=== PATIENT | male | born 1950 | race Caucasian/White ===

== ENCOUNTER 2016-08-08 18:50 | Emergency (ER) | payer MEDICARE, OTHER ==
[2016-08-08] MEDS ORDERED: traMADol HCL 50 MG (ER DISP) # 6 TABS PO ONE (21:59)
--- NOTE | 2016-08-09 13:32 | RAD ---
EXAM DESCRIPTION: XR CHEST 2 VIEWS CLINICAL HISTORY: SYNCOPE,FALL COMPARISON: None Available. TECHNIQUE: PA/lateral FINDINGS: There is no cardiac or pulmonary abnormality. The lungs are clear. There is no effusion. IMPRESSION: No acute findings on today's study. Electronically signed by: Beck Rose MD 08/09/2016 13:31
--- NOTE | 2016-08-09 13:33 | RAD ---
EXAM DESCRIPTION: XR RIBS 2 VIEWS UNILATERAL CLINICAL HISTORY: 66 y/o ,M, FALL COMPARISON: Chest radiograph performed today. IMPRESSION: Four views of the right ribs demonstrate a minimally displaced 6th, 7th and 8th rib fractures. No pneumothorax on today's study. Please refer to the separately dictated chest x-ray for additional information. Electronically signed by: Beck Rose MD 08/09/2016 13:33
== END 2016-08-08 21:55 | disposition home or self-care (01) ==
LOC: ER 18:50
DX: R55 Syncope and collapse (principal); R07.81 Pleurodynia

== ENCOUNTER → 2016-08-09 | Outpatient (CLI) | payer MEDICARE, OTHER ==
--- NOTE | 2016-08-09 16:34 | CT ---
EXAM DESCRIPTION: CT HEAD WITHOUT IV CONTRAST CLINICAL HISTORY: SYNCOPE COMPARISON: None available TECHNIQUE: Non contrast cranial CT was performed. Data was reconstructed for interpretation. FINDINGS: Ventricles and sulci are unremarkable. There is no hemorrhage or mass. Mild periventricular white matter disease noted, age appropriate. Vascular calcifications noted within bilateral internal carotid arteries. The calvarium is unremarkable. The visualized paranasal sinuses and the mastoids are clear. IMPRESSION: Today's exam demonstrates minimal periventricular white matter disease in atherosclerotic disease of bilateral internal carotid arteries. No acute findings on today's study. Electronically signed by: Beck Rose MD 08/09/2016 16:33
== END | disposition home or self-care (01) ==
LOC: LAB.NP 12:29
PROVIDERS: ATTEND Family Medicine
DX: Z12.5 Encounter for screening for malignant neoplasm of prostate (principal); E78.2 Mixed hyperlipidemia; R55 Syncope and collapse
CPT/HCPCS: 70450; 84443; 84550; G0103

== ENCOUNTER 2016-08-11 18:12 | Emergency (ER) | payer MEDICARE, OTHER ==
[2016-08-11 18:39] VITALS: TEMP 97.9
--- NOTE | 2016-08-11 21:07 | CT ---
EXAM DESCRIPTION: CTA Chest CLINICAL HISTORY: 66 years Male, syncope COMPARISON: Chest x-ray from today TECHNIQUE: 2.5 mm axial images through the chest were performed after the administration of intravenous contrast utilizing a pulmonary embolus protocol. Coronal MIPS were performed by the reading radiologist. FINDINGS: Small pericardial and small RIGHT pleural effusions are present. Normal caliber aorta without dissection. Vascular calcifications are noted with greatest involvement in the coronary arteries. No acute pulmonary embolus is present. No pneumothorax. Dependent airspace opacities suggest atelectasis. Patent central airway. A 5 mm hypoattenuating thyroid gland nodule (RIGHT lobe on axial image 14) does not require follow-up based on size and patient age. Redemonstrated are RIGHT lateral rib fractures. In particular, the RIGHT fifth lateral rib fracture is nondisplaced, RIGHT six lateral rib fracture is displaced one shaft width in the RIGHT seventh lateral rib fracture is nondisplaced. Multiple hepatic cysts are present. The largest resides in the RIGHT lobe and measures 3 cm in size. The pancreas is atrophic. Gas and soft stool distends the imaged colon. No bowel wall thickening or adjacent fat stranding. IMPRESSION: There are three displaced and nondisplaced RIGHT lateral rib fractures (RIGHT fifth through seventh ribs). No pneumothorax. These rib fractures are favored to be the cause of the small RIGHT pleural effusion and atelectasis in the lung bases. No acute pulmonary embolus. Normal caliber aorta without dissection. Trace pericardial effusion. Coronary artery disease. Gaseous and soft stool distention of the imaged colon. 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
--- NOTE | 2016-08-11 21:45 | ED.PDOC ---
History of Present Illness - General Chief Complaint: Blood Pressure Problem Stated Complaint: headache and high blood pressure Time Seen by Provider: 08/11/16 18:43 Source: patient Exam Limitations: no limitations - History of Present Illness Initial Comments: Patient presents after checking his blood pressure and finding it to be systolic in the 10s. He also had a brief episoded of diaphoresis today. He had a syncopal event last week in which he fell and broke his right 6th rib. He followed up with his pcp on two days ago and got a head CT and is awaiting the results. No other complaints. Patient has not had any further syncopal events. He has an appointment with his pcp tomorrow. Timing/Duration: 1-3 hours Severity: mild Improving Factors: nothing Worsening Factors: nothing Associated Symptoms: denies symptoms Allergies/Adverse Reactions: Allergies NO KNOWN ALLERGY Allergy (Verified 08/11/16 18:39) Review of Systems - Review of Systems Constitutional: States: no symptoms reported EENTM: States: no symptoms reported Respiratory: States: no symptoms reported Cardiology: States: no symptoms reported Gastrointestinal/Abdominal: States: no symptoms reported Genitourinary: States: no symptoms reported Musculoskeletal: States: no symptoms reported Skin: States: no symptoms reported Neurological: States: no symptoms reported Endocrine: States: no symptoms reported Hematologic/Lymphatic: States: no symptoms reported Past Medical History (General) - Patient Medical History Hx Hypertension: Yes Hx Diabetes: Yes Surgical History: other - Vaccination History Hx Tetanus, Diphtheria Vaccination: - unknown Hx Influenza Vaccination: Yes Hx Pneumococcal Vaccination: No - Social History Hx Tobacco Use: No Hx Alcohol Use: No Hx Substance Use: No Hx Substance Use Treatment: No Hx Depression: No - Activities of Daily Living Hospice Agency (if applicable):: None Family Medical History - Family History Mother Family History: Unknown Physical Exam - Physical Exam General Appearance: Alert Ears, Nose, Throat: normal ENT inspection Neck: non-tender, full range of motion, supple Respiratory: lungs clear, other - tender right thorax Cardiovascular/Chest: regular rate, rhythm Gastrointestinal/Abdominal: normal bowel sounds, non tender, soft Extremity: normal inspection Skin Exam: normal color Progress - Progress Progress: 08/11/16 21:[address] exam from friday. Age related white matter changes. Incidental internal carotid atherosclerosis which might be related to his past syncopal events. Troponin negative. EKG showed no acute ST changes nor significant T wave inversions. CTA chest showed no PE. Three fractured ribs on right side noticed with small pleural effusion. Patient discharged with orders to keep his follow up with his pcp tomorrow. Laboratory Tests 08/11/16 19:07 WBC 11.6 H D RBC 5.32 Hgb 15.6 Hct 46.8 MCV 87.9 MCH 29.4 MCHC 33.4 RDW 14.6 H Plt Count 270 MPV 7.8 Absolute Neuts (auto) 9.70 H Absolute Lymphs (auto) 1.10 Absolute Monos (auto) 0.70 Absolute Eos (auto) 0.10 Absolute Basos (auto) 0.00 Neutrophils % 83.9 H Lymphocytes % 9.1 L Monocytes % 6.2 Eosinophils % 0.6 L Basophils % 0.2 PT 11.3 INR 1.000 PTT (SP) 28.3 D-Dimer, Quantitative 252 H* Sodium 132 L Potassium 4.1 Chloride 96 L Carbon Dioxide 31 Anion Gap 9.1 L BUN 18 Creatinine 0.95 BUN/Creatinine Ratio 18.9 Random Glucose 127 H Serum Osmolality 268.0 L Calcium 9.6 Total Bilirubin 1.0 AST 14 ALT 14 Alkaline Phosphatase 65 D Creatine Kinase 87 CK-MB (CK-2) 2.9 CK-MB (CK-2) % Not Reportable Troponin I < 0.02 B-Natriuretic Peptide 9.4 Serum Total Protein 7.6 Albumin 4.3 Globulin 3.3 Albumin/Globulin Ratio 1.3 Departure - Departure Disposition: Discharge to Home or Self Care Condition: Good Departure Forms: ED Discharge - Pt. Copy, Patient Portal Self Enrollment Diet: resume usual diet Activity: increase activity as tolerated Additional Instructions: Keep your primary care doctor appointment tomorrow.
[2016-08-11 22:28] VITALS: BP 154/88; O2SAT 93
--- NOTE | 2016-08-19 00:28 | RAD ---
EXAM DESCRIPTION: Chest,1 View CLINICAL HISTORY: 66 years, Male, diaphoresis, syncope COMPARISON: Chest x-ray dated 08/08/2016. FINDINGS: A single frontal chest radiograph was performed. The lungs are moderately expanded and clear aside from discoid atelectasis in the LEFT lower lobe. The costophrenic sulci are sharp. The aortic arch is calcified. The cardiac silhouette, hilar regions, trachea, soft tissues and bony structures are unremarkable aside from a mildly displaced posterior sixth rib fracture. No pneumothorax is identified. In the interval since the prior study, lung volumes have decreased. IMPRESSION: No acute cardiopulmonary disease. Mildly displaced posterior RIGHT sixth rib. The other reported rib fractures are less well seen given the location. 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
== END 2016-08-11 22:27 | disposition home or self-care (01) ==
LOC: ER 18:12
DX: I10 Essential (primary) hypertension (principal); I65.29 Occlusion and stenosis of unspecified carotid artery; E11.9 Type 2 diabetes mellitus without complications; J90 Pleural effusion, not elsewhere classified

== ENCOUNTER → 2018-01-13 | Outpatient (CLI) | payer MEDICARE, OTHER | LOC: LAB.O 08:15 | PROVIDERS: ATTEND Internal Medicine Gastroenterology | DX: I10 Essential (primary) hypertension (principal); K76.89 Other specified diseases of liver; R94.5 Abnormal results of liver function studies; Q44.6 Cystic disease of liver ==

== ENCOUNTER → 2018-01-27 | Outpatient (CLI) | payer MEDICARE, OTHER ==
--- NOTE | 2018-01-27 15:10 | MRI ---
EXAM DESCRIPTION: Lumbar Spine w/o Contrast CLINICAL HISTORY: 67 years Male, LUMBAR RADICULOPATHY COMPARISON: None available. TECHNIQUE: Multiplanar multiecho imaging of the lumbar spine was performed without intravenous contrast administration. FINDINGS: The vertebral body heights are well-maintained with no acute compression deformity. Multilevel intervertebral disc space narrowing is noted. The conus medullaris terminates at L2 vertebral body. The visualized spinal cord demonstrates no signal abnormality. L1-L2: Mild bilateral facet arthropathy with mild bilateral neural foraminal narrowing. Disc desiccation with no canal stenosis. L2-L3: Bilateral facet arthropathy with resultant mild bilateral neural foraminal narrowing. L3-L4: Bilateral facet arthropathy and posterior disc bulge with resultant moderate to severe bilateral lateral recess narrowing and moderate right and moderate to severe left neural foraminal narrowing. L4-L5: Bilateral facet arthropathy and ligamentum flavum hypertrophy with mild canal stenosis, moderate to severe bilateral lateral recess narrowing and neural foraminal narrowing. L5-S1: There is a 1 x 0.6 cm facet synovial cyst arising from the left facet joint and protruding into the central canal with abutment of the traversing left S1 nerve root. Also, there is moderate right and moderate to severe left neural foraminal narrowing secondary to facet arthropathy. The visualized prevertebral and paravertebral soft tissues appear unremarkable. IMPRESSION: Multilevel degenerative disc disease and facet arthropathy throughout the lumbar spine with changes worse from L3-L4 through L5-S1 levels as detailed above. Electronically signed by: Kinsey Snell MD 01/27/2018 3:09 PM CDT
== END ==
LOC: MRI 10:00
PROVIDERS: ATTEND Physician Assistant Medical
DX: M54.16 Radiculopathy, lumbar region (principal); M51.36 Other intervertebral disc degeneration, lumbar region

== ENCOUNTER → 2019-09-21 | Outpatient (CLI) | payer MEDICARE, OTHER | LOC: YCFC.O 10:30 | PROVIDERS: ATTEND Family Medicine | DX: E55.9 Vitamin D deficiency, unspecified (principal); Z12.5 Encounter for screening for malignant neoplasm of prostate; I10 Essential (primary) hypertension; R73.01 Impaired fasting glucose; E78.5 Hyperlipidemia, unspecified; R53.83 Other fatigue ==

== ENCOUNTER → 2019-11-29 | Outpatient (CLI) | payer MEDICARE, OTHER ==
--- NOTE | 2019-11-29 14:36 | MRI ---
EXAM DESCRIPTION: Lumbar Spine w/o Contrast : Magnetic Resonance Imaging. CLINICAL HISTORY: LOW BACK PAIN COMPARISON: MRI lumbar spine without contrast January 2018. TECHNIQUE: Multiplanar, multiple standard sequences, non contrast MRI, lumbar spine. FINDINGS: L5-S1: The disc is well visualized on axial T2 series 501, image 3. Disc desiccation with disc space maintained. Grade 1 anterolisthesis 2 mm. Minimal disc bulge posterior. Degenerative hypertrophy of the posterior ligaments and facet joints (canal elements) more on the left. AP canal diameter 11 mm. Left foraminal stenosis and moderate to severe right foraminal narrowing. Bilateral deformities of the L5 pars interarticulares. Stable since the prior study. L4-L5: Disc desiccation and posterior disc space loss. Minimal degenerative hypertrophy of the canal elements with AP canal diameter 10 mm. Bilateral borderline foraminal stenosis. No change from the prior study. L3-L4: Minimal disc desiccation with disc space maintained. Minimal hypertrophy of the canal elements. Mild disc bulge into the right foramen more on the left with stenosis. Moderate narrowing on the right. Canal is patent. Stable since the prior study. L2-L3: Disc desiccation anterior bulging and anterior endplate reactive changes. No posterior bulge. Canal elements are unremarkable. Foramina and Canal are patent. No interval change. L1-L2: Disc desiccation with disc space maintained. Minimal anterior bulging. Canal diameter patent. Mild narrowing of the left foramen with right foramen patent. Stable since the prior study. Conus terminates just below the disc space. T12-L1: Disc desiccation with minimal anterior bulging. Trace posterior bulge. Canal Elements are unremarkable. Bilateral foramina and canal are patent. No change from the prior study. No significant scoliosis. Paravertebral soft tissues are unremarkable.. Distal cord normal signal and caliber. Normal marrow signal in the remaining vertebral bodies and the posterior elements. Vertebral bodies are not compressed at any level. IMPRESSION: 1. Multiple levels of significant foraminal and canal narrowing and disc desiccation. Multifocal degenerative hypertrophy of the posterior flavum ligaments and facet joints. 2. L4-L5 multifocal borderline mild central canal stenosis and bilateral borderline foraminal stenosis. No change from the prior study. 3. L3-L4 left foraminal stenosis stable since the prior study. For results at other levels, please see findings above. Electronically signed by: Santosh Martinez MD 11/29/2019 2:35 PM CDT
== END ==
LOC: MRI 08:04
PROVIDERS: ATTEND Family Medicine
DX: M51.35 Other intervertebral disc degeneration, thoracolumbar region (principal); M51.36 Other intervertebral disc degeneration, lumbar region; M51.85 Other intervertebral disc disorders, thoracolumbar region; M48.061 Spinal stenosis, lumbar region without neurogenic claudication; M46.96 Unspecified inflammatory spondylopathy, lumbar region; M24.28 Disorder of ligament, vertebrae

== ENCOUNTER → 2019-12-07 | Outpatient (CLI) | payer MEDICARE, OTHER ==
--- NOTE | 2019-12-08 09:50 | RAD ---
EXAM DESCRIPTION: Lumbar Spine 5 Views CLINICAL HISTORY: 69 years Male, SPINAL STENOSIS COMPARISON: MRI of the lumbar spine dated 11/29/2019. FINDINGS: Straightening of the normal lordotic curvature of the lumbar spine. The vertebral body heights are well-maintained with no acute compression deformity. Multilevel degenerative disc disease and facet arthropathy is noted, worse at L5-S1 level. No evidence of spondylolysis or spondylolisthesis with flexion or extension. The visualized prevertebral and paravertebral soft tissues appear grossly unremarkable. IMPRESSION: Multilevel degenerative disc disease and facet arthropathy, worse at L5-S1 level. No evidence of subluxation of the lumbar spine with flexion or extension. Electronically signed by: Kinsey Snell MD 12/08/2019 9:48 AM CDT
== END ==
LOC: RAD 13:55
PROVIDERS: ATTEND Family Medicine Sports Medicine
DX: M48.062 Spinal stenosis, lumbar region with neurogenic claudication (principal); M51.36 Other intervertebral disc degeneration, lumbar region; M51.37 Other intervertebral disc degeneration, lumbosacral region; M12.9 Arthropathy, unspecified

== ENCOUNTER → 2019-12-09 | Outpatient (CLI) | payer MEDICARE, OTHER | LOC: LAB.O 14:55 | PROVIDERS: ATTEND Family Medicine Sports Medicine | DX: Z01.818 Encounter for other preprocedural examination (principal); M48.062 Spinal stenosis, lumbar region with neurogenic claudication ==

== ENCOUNTER 2020-04-09 10:18 | Emergency (ER) | payer MEDICARE, OTHER ==
[2020-04-09 10:30] VITALS: BP 155/97; TEMP 97.2; O2SAT 97
[2020-04-09] MEDS ORDERED: TETANUS,DIPHTHERIA,PERTUSSIS 1 EA SYG IM ONE (10:30)
[2020-04-09] MEDS ORDERED: LIDOCAINE 1% 10 ML VIAL INJ ONE (10:30)
[2020-04-09] MEDS ORDERED: SULFA/TRIMETH 800/160 (DS) TAB 1 EA TAB PO ONE (10:31)
--- NOTE | 2020-04-09 10:37 | ED.PDOC ---
History of Present Illness - General Chief Complaint: General Stated Complaint: Fish hook in the R thumb Time Seen by Provider: 04/09/20 10:29 Source: patient Exam Limitations: no limitations - History of Present Illness Initial Comments: The patient is a 69-year-old male presented emergency room secondary to getting a fishhook stuck in the distal right thumb. This occurred just prior to arrival. Only one hook is in place. He is neurovascularly intact. Timing/Duration: unsure Severity: mild Improving Factors: nothing Worsening Factors: movement Associated Symptoms: denies symptoms Allergies/Adverse Reactions: Allergies NO KNOWN ALLERGY Allergy (Verified 08/11/16 18:39) Review of Systems - Review of Systems Constitutional: States: no symptoms reported EENTM: States: no symptoms reported Respiratory: States: no symptoms reported Cardiology: States: no symptoms reported Gastrointestinal/Abdominal: States: no symptoms reported Genitourinary: States: no symptoms reported Musculoskeletal: States: no symptoms reported Skin: States: see HPI Neurological: States: no symptoms reported All other Systems: No Change from Baseline Past Medical History (General) - Patient Medical History Hx Stroke: No Hx of COPD: No Hx Cardiac Disorders: Yes - loop recorder Hx Hypertension: Yes Hx Diabetes: No Hx Cancer: No Surgical History: other - Vaccination History Hx Tetanus, Diphtheria Vaccination: - unknown Hx Influenza Vaccination: Yes Hx Pneumococcal Vaccination: Yes - Social History Hx Tobacco Use: No Hx Alcohol Use: No Hx Substance Use: No Hx Substance Use Treatment: No Hx Depression: No - Female History Patient is a Female of Child Bearing Age (10 -59 yrs old): No Patient : No Family Medical History - Family History Mother Family History: Unknown Physical Exam - Physical Exam General Appearance: Alert, Comfortable, No apparent distress Eye Exam: bilateral normal Ears, Nose, Throat: hearing grossly normal Respiratory: no respiratory distress, no accessory muscle use Cardiovascular/Chest: normal peripheral pulses Peripheral Pulses: radial,right: 2+, radial,left: 2+ Rectal Exam: deferred Extremity: normal range of motion - Of the upper extremities, normal capillary refill 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 Risk and benefits of removal were explained and the patient agrees to proceed. Area is cleaned with an alcohol swab and 1% lidocaine without epinephrine was injected x2 cc for local anesthetic. Needle-nose pliers were used to remove the hook. Patient tolerated this well. Area is irrigated with water. The patient received a dose of a tetanus shot and a dose of Bactrim here. He does need to monitor for any evidence of infection. ER warnings are given. [email or web address] an [id number] Departure - Departure Clinical Impression: Fishing hook foreign body Qualifiers: Encounter type: initial encounter Qualified Code(s): W45.8XXA - Other foreign body or object entering through skin, initial encounter Disposition: Discharge to Home or Self Care Condition: Fair Departure Forms: ED Discharge - Pt. Copy, Patient Portal Self Enrollment Diet: regular diet Activity: increase activity as tolerated Referrals: González Cardoza MD [Primary Care Provider] - 1-2 Weeks Additional Instructions: The patient is a 69-year-old male presented emergency room secondary to sustaining a fishing hook in the right distal thumb. Needle-nose pliers were used to remove the hook. Patient tolerated this well. Area is irrigated with water. The patient received a dose of a tetanus shot and a dose of Bactrim here. He does need to monitor for any evidence of infection. ER warnings are given.
== END 2020-04-09 10:52 | disposition home or self-care (01) ==
LOC: ER 10:18
DX: S60.351A Superficial foreign body of right thumb, initial encounter (principal); I10 Essential (primary) hypertension; Z95.818 Presence of other cardiac implants and grafts; W45.8XXA Other foreign body or object entering through skin, initial encounter; Y92.9 Unspecified place or not applicable

== ENCOUNTER → 2020-06-01 | Outpatient (CLI) | payer MEDICARE, OTHER | LOC: YCFC.O 10:10 | PROVIDERS: ATTEND Nurse Practitioner | DX: Z20.828 Contact with and (suspected) exposure to other viral communicable diseases (principal) ==

== ENCOUNTER → 2020-06-13 | Outpatient (CLI) | payer MEDICARE, OTHER | LOC: YCFC.O 13:43 | PROVIDERS: ATTEND Nurse Practitioner Family | DX: Z20.828 Contact with and (suspected) exposure to other viral communicable diseases (principal) ==